=== PATIENT | female | born 1990 | race Caucasian/White ===

== ENCOUNTER → 2020-05-10 | Outpatient (CLI) | payer OTHER ==
[2020-05-10 20:08] LABS: HEMATOCRIT 43.8 % (36.0-47.0); HEMOGLOBIN 13.6 g/dl (12.0-15.5); MEAN CORPUSCULAR HEMOGLOBIN 27.9 pg (27.0-33.0); MEAN CORPUSCULAR HGB CONC 31.1 g/dl (32.0-36.5); MEAN CORPUSCULAR VOLUME 89.8 fl (80.0-96.0); PLATELET COUNT, AUTOMATED 265 10^3/uL (150-450); RED BLOOD COUNT 4.88 10^6/uL (4.00-5.40); WHITE BLOOD COUNT 10.3 10^3/uL (4.0-10.0)
[2020-05-10 20:25] LABS: HEMOGLOBIN A1c 6.1 %
[2020-05-10 20:47] LABS: ALBUMIN 3.7 GM/DL (3.2-5.2); ALT/SGPT 23 U/L (12-78); BILIRUBIN,TOTAL 0.3 MG/DL (0.2-1.0); BLOOD UREA NITROGEN 12 MG/DL (7-18); CALCIUM LEVEL 8.6 MG/DL (8.5-10.1); CARBON DIOXIDE LEVEL 28 MEQ/L (21-32); CHLORIDE LEVEL 109 MEQ/L (98-107); CREATININE FOR GFR 0.92 MG/DL (0.55-1.30); GLOMERULAR FILTRATION RATE > 60.0 (>60); GLUCOSE, FASTING 144 MG/DL (70-100); POTASSIUM SERUM 4.1 MEQ/L (3.5-5.1); SODIUM LEVEL 141 MEQ/L (136-145); TOTAL PROTEIN 6.7 GM/DL (6.4-8.2)
== END ==
LOC: M WUC 15:53
PROVIDERS: ATTEND Family Medicine
DX: Z51.81 Encounter for therapeutic drug level monitoring (principal); Z79.899 Other long term (current) drug therapy

== ENCOUNTER → 2022-10-16 | Outpatient (REF) | payer OTHER | LOC: M PLALAB 15:36 | PROVIDERS: ATTEND Advanced Practice Midwife | DX: Z53.9 Procedure and treatment not carried out, unspecified reason (principal) ==

== ENCOUNTER → 2022-11-02 | Outpatient (CLI) | payer OTHER ==
[2022-11-02 17:47] LABS: HEMATOCRIT 40.5 % (36.0-47.0); HEMOGLOBIN 12.8 g/dl (12.0-15.5); MEAN CORPUSCULAR HEMOGLOBIN 27.5 pg (27.0-33.0); MEAN CORPUSCULAR HGB CONC 31.6 g/dl (32.0-36.5); MEAN CORPUSCULAR VOLUME 86.9 fl (80.0-96.0); PLATELET COUNT, AUTOMATED 259 10^3/uL (150-450); RED BLOOD COUNT 4.66 10^6/uL (4.00-5.40); WHITE BLOOD COUNT 14.7 10^3/uL (4.0-10.0)
[2022-11-02 17:59] LABS: HEMOGLOBIN A1c 5.7 % (4.0-6.0)
[2022-11-02 18:37] LABS: HIV 1&2 SCREEN NEGATIVE (NEGATIVE)
[2022-11-02 18:45] LABS: HEPATITIS C VIRUS ABY INDEX 0.15 INDEX (<0.8)
[2022-11-02 20:22] LABS: GC DNA AMPLIFICATION NEGATIVE (NEGATIVE)
== END ==
LOC: M PLALAB 13:44
PROVIDERS: ATTEND Advanced Practice Midwife
DX: Z34.81 Encounter for supervision of other normal pregnancy, first trimester (principal)

== ENCOUNTER → 2022-11-18 | Outpatient (REF) | payer OTHER | LOC: M PLALAB 16:24 | PROVIDERS: ATTEND Advanced Practice Midwife | DX: E66.09 Other obesity due to excess calories (principal) ==

== ENCOUNTER → 2022-11-20 | Outpatient (CLI) | payer OTHER ==
[2022-11-20 14:38] LABS: LDH LACTATE DEHYDROGENASE 138 U/L (120-246)
[2022-11-20 14:39] LABS: ALT/SGPT 28 U/L (7.0-40); AST/SGOT 12 U/L (<34); BILIRUBIN,TOTAL 0.2 MG/DL (0.3-1.2); CREATININE FOR GFR 0.62 MG/DL (0.55-1.30); GLOMERULAR FILTRATION RATE > 60.0 (>60); GLUCOSE CHALLENGE TEST 1 HOUR 150 MG/DL (LESS THAN 140)
[2022-11-20 15:25] LABS: URIC ACID 5.6 MG/DL (3.1-7.8)
== END ==
LOC: M PLALAB 10:11
PROVIDERS: ATTEND Advanced Practice Midwife
DX: O99.212 Obesity complicating pregnancy, second trimester (principal)

== ENCOUNTER → 2022-11-30 | Outpatient (CLI) | payer OTHER | LOC: M LAB 08:12 | PROVIDERS: ATTEND Advanced Practice Midwife | DX: O99.810 Abnormal glucose complicating pregnancy (principal) ==

== ENCOUNTER → 2022-12-25 | Outpatient (CLI) | payer OTHER | LOC: M WHC 12:27 | PROVIDERS: ATTEND Advanced Practice Midwife | DX: O99.212 Obesity complicating pregnancy, second trimester (principal) ==

== ENCOUNTER → 2023-01-25 | Outpatient (CLI) | payer OTHER | LOC: M WHC 14:05 | PROVIDERS: ATTEND Advanced Practice Midwife | DX: O99.212 Obesity complicating pregnancy, second trimester (principal) ==

== ENCOUNTER → 2023-03-01 | Outpatient (CLI) | payer OTHER | LOC: M LAB 07:36 | PROVIDERS: ATTEND Advanced Practice Midwife | DX: O99.212 Obesity complicating pregnancy, second trimester (principal); Z3A.00 Weeks of gestation of pregnancy not specified ==

== ENCOUNTER → 2023-03-24 | Outpatient (CLI) | payer OTHER | LOC: M RAD 13:58 | PROVIDERS: ATTEND Advanced Practice Midwife | DX: O24.419 Gestational diabetes mellitus in pregnancy, unspecified control (principal) ==

== ENCOUNTER → 2023-04-09 | Outpatient (CLI) | payer OTHER ==
[2023-04-09 16:04] LABS: HEMATOCRIT 35.7 % (36.0-47.0); HEMOGLOBIN 11.3 g/dl (12.0-15.5); MEAN CORPUSCULAR HEMOGLOBIN 27.4 pg (27.0-33.0); MEAN CORPUSCULAR HGB CONC 31.7 g/dl (32.0-36.5); MEAN CORPUSCULAR VOLUME 86.4 fl (80.0-96.0); PLATELET COUNT, AUTOMATED 214 10^3/uL (150-450); RED BLOOD COUNT 4.13 10^6/uL (4.00-5.40); WHITE BLOOD COUNT 13.8 10^3/uL (4.0-10.0)
[2023-04-09 16:16] LABS: TOTAL PROTEIN,RANDOM URINE 14.2 MG/DL (0.0-14.0)
[2023-04-09 16:18] LABS: URIC ACID 6.9 MG/DL (3.1-7.8)
[2023-04-09 16:19] LABS: LDH LACTATE DEHYDROGENASE 132 U/L (120-246)
[2023-04-09 16:21] LABS: ALT/SGPT 10 U/L (7.0-40); AST/SGOT 11 U/L (<34); BILIRUBIN,TOTAL 0.2 MG/DL (0.3-1.2); GLOMERULAR FILTRATION RATE > 60.0 (>60)
== END ==
LOC: M PLALAB 14:00
PROVIDERS: ATTEND Obstetrics & Gynecology
DX: O16.9 Unspecified maternal hypertension, unspecified trimester (principal); Z3A.00 Weeks of gestation of pregnancy not specified

== ENCOUNTER → 2023-04-14 | Outpatient (CLI) | payer OTHER ==
[~2023-04-14] MED LIST: FLUO20CA22 PO; LABE200T5 PO; METF-877 PO; METF500T13 PO; MULTTAB20 PO
== END ==
LOC: M WHC 13:58
PROVIDERS: ATTEND Obstetrics & Gynecology
DX: O24.419 Gestational diabetes mellitus in pregnancy, unspecified control (principal)

== ENCOUNTER 2023-04-16 15:27 | Outpatient (CLI) | payer OTHER ==
[~2023-04-16] VITALS: Ht 162.6 cm; Wt 150.9 kg
[2023-04-16] MEDS ORDERED: METF500T13 PO (15:45)
[2023-04-16] MEDS ORDERED: FLUO20CA22 PO (15:45)
[2023-04-16] MEDS ORDERED: MULTTAB20 PO (15:45)
[2023-04-16] MEDS ORDERED: METF-877 PO (15:45)
[2023-04-16 15:57] LABS: HEMATOCRIT 36.9 % (36.0-47.0); HEMOGLOBIN 11.8 g/dl (12.0-15.5); MEAN CORPUSCULAR HEMOGLOBIN 27.3 pg (27.0-33.0); MEAN CORPUSCULAR VOLUME 85.4 fl (80.0-96.0); PLATELET COUNT, AUTOMATED 249 10^3/uL (150-450); RED BLOOD COUNT 4.32 10^6/uL (4.00-5.40); WHITE BLOOD COUNT 16.5 10^3/uL (4.0-10.0)
[2023-04-16 16:01] VITALS: BP 135/64
[2023-04-16 16:20] LABS: URIC ACID 7.2 MG/DL (3.1-7.8)
[2023-04-16 16:22] LABS: LDH LACTATE DEHYDROGENASE 151 U/L (120-246)
[2023-04-16 16:23] LABS: ALT/SGPT 10 U/L (7.0-40); AST/SGOT 13 U/L (<34); BILIRUBIN,TOTAL 0.3 MG/DL (0.3-1.2); CREATININE FOR GFR 0.65 MG/DL (0.55-1.30); GLOMERULAR FILTRATION RATE > 60.0 (>60)
[2023-04-16 16:35] LABS: CREATININE,RANDOM URINE 85.5 MG/DL
[2023-04-16] MEDS ORDERED: HOME MED LIST COMPLETE! XX SCH (17:05)
[2023-04-16 17:26] VITALS: BP 179/77
[2023-04-16 17:41] VITALS: BP 137/76
[2023-04-16] MEDS ORDERED: LABETALOL 200 MG TAB PO ONE (17:45)
[2023-04-16 17:56] VITALS: BP 141/67
[2023-04-16 18:10] VITALS: BP 141/67
[2023-04-16] MEDS ORDERED: LABE200T5 PO (19:35)
== END 2023-04-16 18:26 | disposition home or self-care (01) ==
LOC: M LDO 15:27
PROVIDERS: ATTEND Advanced Practice Midwife
DX: O13.3 Gestational [pregnancy-induced] hypertension without significant proteinuria, third trimester (principal); O24.415 Gestational diabetes mellitus in pregnancy, controlled by oral hypoglycemic drugs; O99.343 Other mental disorders complicating pregnancy, third trimester; F41.9 Anxiety disorder, unspecified; Z3A.35 35 weeks gestation of pregnancy
CPT/HCPCS: 36415; 59025; 82247; 82570; 83615; 84156; 84450; 84460; 84550; 85027; G0463

== ENCOUNTER → 2023-04-16 | Outpatient (REF) | payer OTHER | LOC: M PLALAB 16:10 | PROVIDERS: ATTEND Advanced Practice Midwife | DX: O24.415 Gestational diabetes mellitus in pregnancy, controlled by oral hypoglycemic drugs (principal) ==

== ENCOUNTER 2023-04-27 08:32 | Inpatient (IN) | payer OTHER ==
[2023-04-27] VITALS (16 sets, daily range): BP systolic 112–182; BP diastolic 61–96; O2SAT 96–98
[~2023-04-27] VITALS: Ht 162.6 cm; Wt 153.4 kg
[2023-04-27] MEDS: LABETALOL 200 MG TAB PO SCH (09:00)
[2023-04-27] MEDS ORDERED: **PENDING PCN ENTRY XX SCH (09:00)
[2023-04-27 09:45] LABS: MEAN CORPUSCULAR HEMOGLOBIN 27.1 pg (27.0-33.0); MEAN CORPUSCULAR HGB CONC 31.3 g/dl (32.0-36.5); MEAN CORPUSCULAR VOLUME 86.7 fl (80.0-96.0); PLATELET COUNT, AUTOMATED 207 10^3/uL (150-450); RED BLOOD COUNT 3.69 10^6/uL (4.00-5.40); WHITE BLOOD COUNT 11.9 10^3/uL (4.0-10.0)
[2023-04-27] MEDS ORDERED: ACET325C5 PO (09:53)
[2023-04-27] MEDS ORDERED: TUMS500C PO (09:53)
[2023-04-27] MEDS ORDERED: HOME MED LIST COMPLETE! XX SCH (09:55)
[2023-04-27] MEDS: PENICILLIN G POTASSIUM 5 MU IV 5 MU in D5W MINI-BAG PLUS 100 ML IV STA (10:48)
[2023-04-27] MEDS: LACTATED RINGER'S 1000 ML IV STA (10:48)
[2023-04-27] MEDS ORDERED: CARBOPROST TROMETHAMINE 250 MCG/ML AMP IM PRN (10:50)
[2023-04-27] MEDS ORDERED: OXYTOCIN DRIP 30 UNITS in IV 1 EA IV PRN (10:50)
[2023-04-27] MEDS ORDERED: LIDOCAINE 1% MDV 20ML VIAL INFIL PRN (10:50)
[2023-04-27] MEDS ORDERED: TRANEXAMIC ACID INJection 1,000 MG in NS 100 ML IV PRN (10:50)
[2023-04-27] MEDS ORDERED: ALBU6.7H6 INH (10:59)
[2023-04-27] MEDS: miSOPROStol 50MCG 1/2 TABLET SL SCH (11:07)
[2023-04-27] MEDS ORDERED: PEN G POT 3,000,000 UNIT/50 ML 3,000,000 UNIT in IV 1 EA IV SCH (14:50)
[2023-04-27 15:19] LABS: LDH LACTATE DEHYDROGENASE 217 U/L (120-246)
[2023-04-27 15:20] LABS: ALT/SGPT 16 U/L (7.0-40); AST/SGOT 21 U/L (<34); BILIRUBIN,TOTAL 0.2 MG/DL (0.3-1.2); CREATININE FOR GFR 0.67 MG/DL (0.55-1.30); GLOMERULAR FILTRATION RATE > 60.0 (>60)
[2023-04-27] MEDS: metFORMIN (GLUCOPHAGE) 1000MG TABLET PO SCH (18:43)
[2023-04-27] MEDS: ONDANSETRON 4MG 2ML VIAL IV PRN (21:30)
[2023-04-28] VITALS (20 sets, daily range): BP systolic 88–149; BP diastolic 48–79; O2SAT 95–100
[2023-04-28] MEDS ORDERED: LR 1,000 ML IV SCH ×2 (09:05→18:15)
[2023-04-28] MEDS: FLUoxetine 20MG CAP PO SCH (10:07)
[2023-04-28] MEDS: OXYTOCIN DRIP 30 UNITS in IV 1 EA IV SCH ×2 (10:40→18:33)
[2023-04-28] MEDS: LR 1,000 ML IV SCH (10:41)
[2023-04-28] MEDS: metFORMIN (GLUCOPHAGE) 500MG TAB PO SCH (10:51)
[2023-04-28] MEDS: LACTATED RINGER'S 1000 ML IV STA (14:57)
[2023-04-28] MEDS ORDERED: ceFAZolin SOD 3 GM IV Place Holder IV ONE (15:00)
[2023-04-28] MEDS ORDERED: OXYTOCIN DRIP 30 UNITS in IV 1 EA IV PRN (15:00)
[2023-04-28] MEDS ORDERED: CARBOPROST TROMETHAMINE 250 MCG/ML AMP IM PRN (15:00)
[2023-04-28] MEDS ORDERED: OXYTOCIN INJ 10UNITS/ML 1ML VIAL IM PRN (15:00)
[2023-04-28] MEDS ORDERED: TRANEXAMIC ACID INJection 1,000 MG in NS 100 ML IV PRN (15:00)
[2023-04-28] MEDS: ceFAZolin SOD 1 GM in D5W MINI-BAG PLUS 50 ML IV ONE (15:05)
[2023-04-28] MEDS: ceFAZolin SOD 2 GM in IV 1 EA IV ONE (15:58)
[2023-04-28] MEDS: AZITHROMYCIN INJ 500 MG, VIAL MATE ADAPTER 1 EACH in NS 250 ML IV ONE (15:58)
[2023-04-28] MEDS: BICITRA 30ML SOLN UDC PO ONE (15:58)
[2023-04-28] MEDS ORDERED: MORPHINE PRES-FREE INJ 10 MG/10 ML VIAL As Ordered ONE (16:17)
[2023-04-28] MEDS ORDERED: KETOROLAC 60MG 2ML VIAL As Ordered ONE (16:17)
[2023-04-28] MEDS ORDERED: OXYTOCIN 30UNITS IN 0.9% NaCl 500ML IV BAG As Ordered ONE (16:17)
[2023-04-28] MEDS ORDERED: ONDANSETRON 4MG 2ML VIAL As Ordered ONE (16:17)
[2023-04-28] MEDS ORDERED: ACETAMINOPHEN 1000MG 100ML IV BAG As Ordered ONE (16:18)
[2023-04-28] MEDS ORDERED: PHENYLephrine 500MCG 5ML (100MCG/ML) SYRINGE As Ordered ONE (16:35)
[2023-04-28] MEDS ORDERED: ePHEDrine SULFATE 25 MG/5 ML(5MG/ML) SYRINGE As Ordered ONE (16:35)
[2023-04-28] MEDS ORDERED: GLYCOPYRROLATE INJ 0.2 MG/ML 2 ML VIAL As Ordered ONE (16:53)
[2023-04-28] MEDS ORDERED: METOCLOPRAMIDE INJ 10MG/2ML VIAL As Ordered ONE (17:17)
[2023-04-28 17:24] LABS: CORD GAS ABE A -16.7; CORD GAS HCO3 A 18.6 MMOL/L; CORD GAS O2 SAT A 29.6 %; CORD GAS PCO2 A 96.5 mmHg; CORD GAS PO2 A 22.5 mmHg; CORD GAS SBC A 11.1 MMOL/L; CORD GAS TCO2 A 21.6 MMOL/L
[2023-04-28 17:25] LABS: CORD GAS ABE V -15.5; CORD GAS HCO3 V 17.7 MMOL/L; CORD GAS O2 SAT V 44.4 %; CORD GAS PCO2 V 76.1 mmHg; CORD GAS PO2 V 27.1 mmHg; CORD GAS SBC V 12.1 MMOL/L; CORD GAS TCO2 V 20.1 MMOL/L
[2023-04-28 17:27] LABS: CORD GAS PH A 6.904 UNITS; CORD GAS PH V 6.985 UNITS
[2023-04-28] MEDS ORDERED: ONDANSETRON 4MG 2ML VIAL IV PRN (18:15)
[2023-04-28] MEDS ORDERED: NALOXONE INJ 0.4MG/1ML VIAL IV PRN ×2 (18:15)
[2023-04-28] MEDS ORDERED: **NOTE PATIENT COMMENT** MISC XX SCH (18:15)
[2023-04-28] MEDS ORDERED: oxyCODONE 5MG TAB PO PRN ×3 (18:15→18:25)
[2023-04-28] MEDS ORDERED: diphenhydrAMINE 50MG/ML VIAL IV PRN (18:15)
[2023-04-28] MEDS ORDERED: SLF 3 ML SYR IV SCH (18:15)
[2023-04-28] MEDS ORDERED: fentaNYL 100 MCG/2 ML INJECTION IV PRN (18:15)
[2023-04-28] MEDS ORDERED: ACETAMINOPHEN 500 MG TAB PO SCH (18:25)
[2023-04-28] MEDS ORDERED: DOCUSATE SODIUM 100MG CAPSULE PO PRN (18:25)
[2023-04-28] MEDS ORDERED: METOCLOPRAMIDE INJ 10MG/2ML VIAL IV PRN (18:25)
[2023-04-28] MEDS ORDERED: RHOGAM 300MCG (1500IU) INJ IM SCH (18:25)
[2023-04-28] MEDS ORDERED: SIMETHICONE 80MG CHEW TAB PO PRN (18:25)
[2023-04-28] MEDS ORDERED: IBUP-1022 PO (18:37)
[2023-04-28] MEDS ORDERED: OXYC-517 PO (18:37)
[2023-04-28] MEDS ORDERED: COLA100C5 PO (18:37)
[2023-04-28] MEDS ORDERED: ACET-683 PO (18:37)
[2023-04-28] MEDS: ONDANSETRON 4MG 2ML VIAL IV PRN (21:21)
[2023-04-28] MEDS: KETOROLAC 30 MG/ML 1ML VIAL IV SCH (22:00)
[2023-04-28] MEDS: ACETAMINOPHEN 500 MG TAB PO SCH (23:47)
[2023-04-28] MEDS: METOCLOPRAMIDE INJ 10MG/2ML VIAL IV PRN (23:47)
[2023-04-28] MEDS: LR 1,000 ML IV ONE (23:47)
[2023-04-29 02:00] VITALS: BP 131/71; O2SAT 96
[2023-04-29] MEDS: LR 500 ML IV ONE (05:40)
[2023-04-29 05:52] VITALS: BP 140/77; O2SAT 98
[2023-04-29 06:52] LABS: HEMATOCRIT 33.4 % (36.0-47.0); HEMOGLOBIN 10.5 g/dl (12.0-15.5); MEAN CORPUSCULAR HEMOGLOBIN 27.1 pg (27.0-33.0); MEAN CORPUSCULAR HGB CONC 31.4 g/dl (32.0-36.5); MEAN CORPUSCULAR VOLUME 86.3 fl (80.0-96.0); PLATELET COUNT, AUTOMATED 216 10^3/uL (150-450); RED BLOOD COUNT 3.87 10^6/uL (4.00-5.40); WHITE BLOOD COUNT 15.3 10^3/uL (4.0-10.0)
[2023-04-29 08:00] VITALS: BP 140/77; TEMP 97; O2SAT 98
[2023-04-29] MEDS: ENOXAPARIN 40MG/0.4ML SYRINGE (J1650 PER 10MG) SC SCH (09:21)
[2023-04-29] MEDS: PRENATAL VITAMINS CHEWABLE TABLET PO SCH (09:25)
[2023-04-29 14:00] VITALS: BP 121/67; O2SAT 97
[2023-04-29 18:00] VITALS: BP 139/80; O2SAT 97
[2023-04-29] MEDS: IBUPROFEN 600MG TAB PO SCH (18:15)
[2023-04-29 22:00] VITALS: BP 113/58; O2SAT 98
[2023-04-30 02:00] VITALS: BP 130/87; O2SAT 97
[2023-04-30 06:00] VITALS: BP 132/65; O2SAT 98
[2023-04-30] MEDS ORDERED: MEASLES,MUMPS,RUBELLA VACCINE INJ (MMR-II) SC.IMMUN ONE (09:00)
[2023-04-30 09:32] VITALS: BP 148/80
[2023-04-30 10:00] VITALS: BP 143/79; O2SAT 98
[2023-04-30 14:00] VITALS: BP 136/72; O2SAT 98
[2023-04-30 18:00] VITALS: BP 151/80; O2SAT 98
== END 2023-04-30 18:33 | disposition home or self-care (01) | DRG 788 ==
LOC: M LDI 08:32 → M OBS 04-28 19:24
PROVIDERS: ADMIT Obstetrics & Gynecology; ATTEND Obstetrics & Gynecology
PROC: 3E0P7GC Introduction of Other Therapeutic Substance into Female Reproductive, Via Natural or Artificial Opening (ICD-10-PCS; 2023-04-27)
PROC: 10D00Z1 Extraction of Products of Conception, Low, Open Approach (ICD-10-PCS; principal; 2023-04-28 15:29)
DX: O13.4 Gestational [pregnancy-induced] hypertension without significant proteinuria, complicating childbirth (principal); O24.425 Gestational diabetes mellitus in childbirth, controlled by oral hypoglycemic drugs; O99.344 Other mental disorders complicating childbirth; F32.A Depression, unspecified; O99.824 Streptococcus B carrier state complicating childbirth; Z3A.37 37 weeks gestation of pregnancy; O99.214 Obesity complicating childbirth; E66.01 Morbid (severe) obesity due to excess calories; O61.0 Failed medical induction of labor; Z37.0 Single live birth

== ENCOUNTER → 2024-02-07 | Outpatient (CLI) | payer OTHER ==
[~2024-02-07] MED LIST changes: +ACET-683 PO; +ACET325C5 PO; +ALBU6.7H6 INH; +COLA100C5 PO; +FLUO-365 PO; -FLUO20CA22 PO; +IBUP-1022 PO; +ISOVUE-370 76% 100ML VIAL ONE; +OXYC-517 PO; +TUMS500C PO
== END ==
LOC: M PLAIMG 09:03
PROVIDERS: ATTEND Family Medicine
DX: R22.1 Localized swelling, mass and lump, neck (principal)

== ENCOUNTER → 2024-02-23 | Outpatient (CLI) | payer OTHER ==
[~2024-02-23] MED LIST changes: -ISOVUE-370 76% 100ML VIAL ONE
[2024-02-23 11:56] LABS: BASO # 0.1 10^3/uL (0.0-0.2); BASO % 1.1 % (0.0-1.0); EOS # 0.2 10^3/uL (0.0-0.5); EOS % 2.7 % (0.0-3.0); HEMATOCRIT 41.9 % (36.0-47.0); LYMPH # 1.9 10^3/uL (1.5-5.0); LYMPH % 23.1 % (24.0-44.0); MEAN CORPUSCULAR HEMOGLOBIN 25.9 pg (27.0-33.0); MEAN CORPUSCULAR VOLUME 83.5 fl (80.0-96.0); MONO # 0.4 10^3/uL (0.0-0.8); MONO % 5.1 % (2.0-8.0); NEUTROPHILS # 5.6 10^3/uL (1.5-8.5); NEUTROPHILS % 67.8 % (36.0-66.0); PLATELET COUNT, AUTOMATED 247 10^3/uL (150-450); RED BLOOD COUNT 5.02 10^6/uL (4.00-5.40); WHITE BLOOD COUNT 8.3 10^3/uL (4.0-10.0)
[2024-02-23 12:25] LABS: ALBUMIN 3.5 G/DL (3.2-5.2); ALKALINE PHOSPHATASE 83 U/L (35-104); ALT/SGPT 20 U/L (7.0-40); AST/SGOT < 8 U/L (<34); BILIRUBIN,TOTAL 0.4 MG/DL (0.3-1.2); BLOOD UREA NITROGEN 14 MG/DL (9-23); CALCIUM LEVEL 9.7 MG/DL (8.5-10.1); CARBON DIOXIDE LEVEL 28 MMOL/L (20-31); CHLORIDE LEVEL 109 MMOL/L (98-107); CREATININE FOR GFR 0.87 MG/DL (0.55-1.30); GLOMERULAR FILTRATION RATE > 60.0 (>60); GLUCOSE, FASTING 115 MG/DL (60-100); POTASSIUM SERUM 4.2 MMOL/L (3.5-5.1); SODIUM LEVEL 141 MMOL/L (136-145); TOTAL PROTEIN 6.9 G/DL (5.7-8.2)
[2024-02-23 12:27] LABS: THYROID STIMULATING HORMONE 1.809 uIU/ML (0.55-4.78)
== END ==
LOC: M WUC 08:50
PROVIDERS: ATTEND Family Medicine
DX: R53.83 Other fatigue (principal); R73.9 Hyperglycemia, unspecified